=== PATIENT | male | born 1960 | race African-American/Black ===

== ENCOUNTER 2016-07-26 11:49 | Emergency (ER) | payer OTHER ==
[~2016-07-26 11:49] MED LIST: AMLO2.5T PO; ATOR20TA PO; ECOT325T PO; HYDR-3129 PO; LISI-357 PO; METF500 PO; METO50TA PO; NORC7.5T PO; OMEP20TA PO; PROT40TA PO; STOO100T PO; TRAZ50TA4 PO; WARF5TAB PO
[2016-07-26 12:08] VITALS: BP 171/113; PULSE 69; RESP 16; TEMP 98.5; O2SAT 96
== END 2016-07-26 12:52 | disposition left against medical advice (07) ==
LOC: PHED 11:49
DX: M54.9 Dorsalgia, unspecified (principal); V89.2XXA Person injured in unspecified motor-vehicle accident, traffic, initial encounter
CPT/HCPCS: 99281